=== PATIENT | female | born 1930 | race Caucasian/White ===

== ENCOUNTER 2019-09-10 12:48 | Inpatient (IN) | payer OTHER ==
--- NOTE | 2019-09-10 13:28 | PDOC ---
History of Present Illness - General Chief Complaint: Injury Stated Complaint: FALL Time Seen by Provider: 09/10/19 13:26 History Source: Patient Exam Limitations: No Limitations - History of Present Illness Initial Comments: 09/10/19 13:26 PCP: Chun HPI: 89yo F from [facility] BIBEMS s/p fall at [facility]. Patient unable to provide adequate history, intermittently cooperative with exam and history. She endorses a headache, but does not know where she is, cannot state her full name, does not know the year. Medical history obtained per [place] documentation. All: Morphine Meds: Per chart PMH: Per chart PSH: Per chart 09/10/19 13:52 Spoke with [facility], patient was at an in-house [employer] salon when she fell, hit her head and started bleeding on L parietal region. Unclear LOC. Nursing became concerned when her O2 dropped to 91%, BP 115/56. At baseline patient is A&Ox1 (Responds to her name) and "makes her needs known" but is demented and would not be expected to be able to provide full history. Medical history notable for Parkinson's Dementia, Cellulitis (LLE), PVC, CHF, OA, CKD Stage 2, HLD, hypothyroidism, GERD, RA, HTN crisis. Patient is DNR/DNI, a copy of her MOLST form was sent. Nursing is faxing over her clinical information now after our call. Denies any recent fevers, chills, diarrhea, coughing, or other concerning symptoms. Past History - Travel Traveled outside of the country in the last 30 days: No Close contact w/someone who was outside of country & ill: No - Past Medical History Allergies/Adverse Reactions: Allergies Allergy/AdvReac Type Severity Reaction Status Date / Time morphine Allergy Verified 09/10/19 13:23 Review of Systems - Review of Systems Able to Perform ROS?: No (demented) Is the patient limited Yakut proficient: Yes *Physical Exam - Physical Exam 09/10/19 14:35 Vitals reviewed, AFVSS GEN: Appears stated age, NAD, Opes eyes to her name, intermittently answers questions. A&AOx1. HEENT: Small bleeding abrasion L parietal head, EOMI, PERRL. Sclera anicteric, non-injected. No facial asymmetry. MMM. Trachea midline. CV: RRR, S1/S2, +holosystolic murmur at upper sternal border. No rubs or gallops appreciated. LUNG: CTAB, normal work of breathing. No wheezes, rales, rhonchi. No cough. Poor Sat 93%, placed on NC. GI: Soft, NTND, +BS, no guarding, no rebound. No masses. Neg CVAT b/l. EXTREMITIES: 2+ distal pulses. Trace b/l LE edema with multiple ecchymosis regions, dressings on LE wounds. No obvious deformities of all extremities. SKIN: Warm, dry, non-jaundiced. Legs as above, warm LLE with erythema extending to the knee concerning for cellulitis. Wounds non-purulent. PSYCH: Normal mood and affect. Cooperative and appropriate. NEURO: CN grossly intact. Exam limited by patient participation. ED Treatment Course - LABORATORY CBC & Chemistry Diagram: 09/10/19 14:23 09/10/19 14:23 Medical Decision Making - Medical Decision Making 09/10/19 13:44 89yo F pmh Parkinson's Dementia, Cellulitis (LLE), PVC, CHF, OA, CKD Stage 2, HLD, hypothyroidism, GERD, RA, HTN crisis sent in s/p fall with head trauma. Baseline A&Ox1. - NCHCT, C-Spine, CXR, EKG - CBC, CMP, Cardiac, PT/INR 09/10/19 15:19 - CT without acute ICH. Demonstrated marked ventricular dilation (lateral and third > fourth) likely 2/2 central atrophy. Degenerative disk disease without cervical spine fracture. - CXR limited study. With right base atelectasis vs infiltrate - Leukocytosis to 27.3, now c/w sepsis Admit Med/Surg Pneumonia 09/10/19 15:42 - Spoke with patient's daughter, RN at [facility], clarified patient baseline further c/w presentation, baseline Cr 1.4? - Pain medications result in "passing out" "even 1/4 percocet knocks her out" - Ordered BCx, LActic acid, Influenza Swab - 500cc NS Bolus, gentle hydration given CHF - Plan for Zosyn for PNA, Vancomycin for LLE Cellulitis 09/10/19 15:44 - Cr 1.8, possible DANE on CKD - Negative troponin 09/10/19 16:09 - LLE plain-film ordered 09/10/19 16:50 - Additional call from [place] provider Ale, states that LLE always has a cellulitic appearance, advocates for return to [facility] - Family notes that patient sleeps at midnight and will be anxious if put to bed before that time - Latests BUN/Cr on 09/03/19 was 36.0/1.8 c/w today's results - Given [employer] WORK[employer] Diane's number: [phone] - Daughter: [phone] 09/10/19 17:02 EKbpm, no P waves, junctional rhythm, normal axis, normal intervals with QTc 454, no ischemic changes 09/10/19 17:13 - Admitted to Dr. Mccollum, sign out given by Dr. Fatima - Consult placed for ID 09/10/19 17:15 - Negative lactic acid, mild alkalosis on VBG - Urines pending Discharge - Discharge Information Problems reviewed: Yes Clinical Impression/Diagnosis: Cellulitis and abscess of left leg Pneumonia Qualifiers: Pneumonia type: due to unspecified organism Laterality: right Lung location: lower lobe of lung Qualified Code(s): J18.9 - Pneumonia, unspecified organism Fall Qualifiers: Encounter type: initial encounter Qualified Code(s): W19.XXXA - Unspecified fall, initial encounter Condition: Guarded - Follow up/Referral Referrals: Noe Mccollum MD [Primary Care Provider] - - Patient Discharge Instructions - Post Discharge Activity
[2019-09-10 14:50] LABS: BASO % 0.2 % (0-2.0); HEMATOCRIT 26.8 % (32.4-45.2); HEMOGLOBIN 8.7 GM/dL (10.7-15.3); LYMPH % 4.9 % (8-40); MCH 28.3 pg (25.7-33.7); MCHC 32.7 g/dl (32.0-36.0); MEAN CELL VOLUME 86.6 fl (80-96); MEAN PLT VOLUME 6.5 fl (7.5-11.1); MONO % 5.5 % (3.8-10.2); NEUT % 89.4 % (42.8-82.8); PLATELET COUNT 440 K/MM3 (134-434); RBC 3.09 M/mm3 (3.60-5.2); RDW 17.4 % (11.6-15.6); WHITE BLOOD COUNT 27.3 K/mm3 (4.0-10.0)
[2019-09-10 15:28] LABS: ALBUMIN 2.8 g/dl (3.4-5.0); ALK PHOS 78 U/L (45-117); ANION GAP 9 MMOL/L (8-16); BILIRUBIN,TOTAL 0.4 mg/dL (0.2-1); BLOOD UREA NITROGEN 47.3 mg/dL (7-18); CHLORIDE 100 mmol/L (98-107); CO2 28 mmol/L (21-32); CREATININE 1.8 mg/dL (0.55-1.3); GLUCOSE,RANDOM 88 mg/dL (74-106); POTASSIUM 5.1 mmol/L (3.5-5.1); SGOT/AST 21 U/L (15-37); SGPT/ALT 9 U/L (13-61); SODIUM 137 mmol/L (136-145)
[2019-09-10] MEDS ORDERED: SODIUM CHLORIDE 0.9% 500 ML INFUS.BAG IV ONE (15:44)
[2019-09-10] MEDS ORDERED: VANCOMYCIN 1 GM in D5W (PRE-DOCKED) 1,000 MG/250 ML IVPB ONE (16:17)
[2019-09-10] MEDS ORDERED: PIPERACILLIN/TAZOB 3.375 GM 3.375 GM in DEXTROSE 5%-WATER - 50 ML IVPB ONE (16:17)
--- NOTE | 2019-09-10 16:20 | PDOC ---
Documentation entered by Aleksandr Wright SCRIBE, acting as scribe for Zafar Fatima MD. Zafar Fatima MD: This documentation has been prepared by the Kyle boogie Nirvannie, SCRIBE, under my direction and personally reviewed by me in its entirety. I confirm that the documentation accurately reflects all work, treatment, procedures, and medical decision making performed by me. Attending Attestation - Resident Resident Name: Luis EnriqueDonald - ED Attending Attestation I have performed the following: I have examined & evaluated the patient, The case was reviewed & discussed with the resident, I agree w/resident's findings & plan, Exceptions are as noted - HPI HPI: 09/10/19 14:05 CC: Fall HPI: The patient is a 89 year old female, with a significant past medical history of Parkinson's Dementia, Cellulitis (LLE), PVC, CHF, OA, CKD Stage 2, HLD, hypothyroidism, GERD, RA, HTN, who presents to the emergency department via EMS from [facility] s/p mechanical fall with a headache and laceration to the left head. As per patient, she was getting her hair done at the [facility] [employer] [facility] at which time she fell off of the chair sustaining a laceration to the left side of the head. Patient is a poor historian thus, history is limited. Allergies: Morphine Primary Care Physician: Dr. Mccollum Advanced Directives: DNR/DNI - Physicial Exam PE: 09/10/19 16:24 Vitals: Triage Vital signs reviewed General Appearance: No acute distress, well nourished well developed, Head: Small abrasion to left parietal Eyes: Pupils equal reactive round, extraocular movement intact Cardiac: Holosystolic murmur. Lungs: Clear to auscultation bilateral, good air movement bilaterally, Abdomen: Soft, non distended, normal bowel sounds, non tender to palpation Extremities: Full range of motion to all extremities, no cyanosis, clubbing, or edema Neuro: Moving all extremities Skin: Several areas of ecchymosis dressing on both legs no obvious pus from dressing sites. Left lower extremity cellulitis. - Medical Decision Making 09/10/19 14:05 89 year old female, with a significant past medical history of Parkinson's Dementia, Cellulitis (LLE), PVC, CHF, OA, CKD Stage 2, HLD, hypothyroidism, GERD, RA, HTN, who presents to the emergency department via EMS from [facility] s/p mechanical fall with a headache and laceration to the left head. Plan is: Head/Cspine CT CBC CMP PT/INR Cardiac Profile UA/UC EKG CXR 09/10/19 16:24 Fall with new elevated white blood cell count chest x-ray with evidence of pneumonia left lower extremity cellulitis We will admit to hospital for Zosyn vancomycin and further management.
[2019-09-10] MEDS ORDERED: VANCOMYCIN 1 GRAM (PRE-DOCKED) 1,000 MG/250 ML BAG IVPB ONE (16:37)
[2019-09-10] MEDS ORDERED: PIPERACILLIN/TAZOB 3.375 GM 3.375 GM/50 ML BAG IVPB ONE (16:37)
[2019-09-10 16:41] LABS: VENOUS PC02 41.4 mmHg (38-52); VENOUS PH 7.43 (7.31-7.41)
[2019-09-10 16:48] LABS: ANISOCYTOSIS 1+; MACROCYTOSIS 0; PLATELET ESTIMATE NORMAL
[2019-09-10 17:34] LABS: HYALINE CASTS 1 /lpf (0-8); PH,URINE 5.5 (5.0-8.0); URINE APPEARANCE TURBID; URINE BACTERIA 1209.9 /hpf (NEGATIVE); URINE BILIRUBIN NEGATIVE (NEGATIVE); URINE COLOR YELLOW; URINE GLUCOSE (UA) NEGATIVE (NEGATIVE); URINE KETONE NEGATIVE (NEGATIVE); URINE LEUK ESTERASE 3+ (NEGATIVE); URINE NITRITE POSITIVE (NEGATIVE); URINE PROTEIN 1+ (NEGATIVE); URINE RBC 7 /hpf (0-4); URINE UROBILINOGEN 0.2 mg/dL (0.2-1.0); URINE WBC 454 /hpf (0-5)
--- NOTE | 2019-09-10 19:44 | HP ---
Admitting History and Physical - Admission Chief Complaint: 89 y.o F was BIBEMS from [facility] after she fell in the [email or web address] and remained lethargic. History of Present Illness: Previously falls and gait disorder. Dementia. 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 No: AFIB Pulmonary: No: Asthma, COPD Gastrointestinal: No: Ascites, Cancer, Constipation, Ulcerative Colitis Hepatobiliary: No: Cirrhosis Renal/: Yes: Renal Inusuff. No: Renal Failure ...: No Psych: Yes: Anxiety Musculoskeletal: No: Hemiparesis, Hemiplegia Rheumatology: No: Lupus, Rheumatoid Arthritis, Sarcoidosis Endocrine: No: Cope's Disease, Diabetes Insipidus, Diabetes Mellitus, Hyperthyroidism, Hypothyroidism - Smoking History Smoking history: Never smoked - Alcohol/Substance Use Hx Alcohol Use: No Home Medications - Allergies Allergies/Adverse Reactions: Allergies Allergy/AdvReac Type Severity Reaction Status Date / Time morphine Allergy Verified 09/10/19 13:23 Review of Systems Unable to obtain ROS, reason: DEMENTIA, LETHARGY Physical Examination Vital Signs: Vital Signs Temperature 98.2 F 09/10/19 19:12 Pulse Rate 65 09/10/19 19:12 Respiratory Rate 20 09/10/19 19:12 Blood Pressure 140/52 L 09/10/19 19:12 O2 Sat by Pulse Oximetry (%) 95 09/10/19 18:34 Constitutional: Yes: Calm, Mild Distress Eyes: Yes: Conjunctiva Clear, EOM Intact HENT: Yes: Other (left scalp-2 abrasion after a fall) Neck: Yes: Supple, Trachea Midline. No: Lymphadenopathy Cardiovascular: Yes: Regular Rate and Rhythm, Murmur (CARLOS on AORTA 3/6), S1, S2. No: Bradycardia, Tachycardia, JVD Respiratory: Yes: Regular, CTA Bilaterally Gastrointestinal: Yes: Normal Bowel Sounds, Soft. No: Abdomen, Obese, Ascites ...Rectal Exam: Yes: Deferred Renal/: No: Anuria, Bladder Distention, CVA Tenderness - Left, CVA Tenderness - Right Extremities: No: Amputation, Calf Tenderness, Cyanosis, Deformity, External Rotation, Internal Rotation, Shortened Edema: No Integumentary: Yes: Bruising, Pressure Ulcer (anterior both shins) Wound/Incision: Yes: Other (iodoform gauze) Neurological: Yes: Lethargy (arousable). No: Oriented, Facial Droop Psychiatric: Yes: Alert. No: Oriented, Agitated, Suicidal Ideation Labs: CBC, BMP 09/10/19 14:23 09/10/19 14:23 Laboratory Results - last 24 hr 09/10/19 09/10/19 09/10/19 14:23 14:23 16:00 WBC 27.3 H RBC 3.09 L Hgb 8.7 L Hct 26.8 L MCV 86.6 MCH 28.3 MCHC 32.7 RDW 17.4 H Plt Count 440 H MPV 6.5 L Absolute Neuts (auto) 24.4 H Neutrophils % 89.4 H Neutrophils % (Manual) 85.6 H Band Neutrophils % 4.1 Lymphocytes % 4.9 L Lymphocytes % (Manual) 8.2 Monocytes % 5.5 Monocytes % (Manual) 2 L Eosinophils % 0.0 Eosinophils % (Manual) 0.0 Basophils % 0.2 Basophils % (Manual) 0.0 Myelocytes % (Man) 0 Promyelocytes % (Man) 0 Blast Cells % (Manual) 0 Nucleated RBC % 0 Metamyelocytes 0 Hypochromia 0 Platelet Estimate Normal Polychromasia 1+ Poikilocytosis 0 Anisocytosis 1+ Microcytosis 2+ Macrocytosis 0 VBG pH 7.43 H POC VBG pCO2 41.4 POC VBG pO2 53.0 H VBG HCO3 27.3 VBG O2 Sat (Robert) 83.9 H VBG Base Excess 3.2 H Sodium 137 Potassium 5.1 Chloride 100 Carbon Dioxide 28 Anion Gap 9 BUN 47.3 H Creatinine 1.8 H Est GFR (CKD-EPI)AfAm 28.62 Est GFR (CKD-EPI)NonAf 24.69 Random Glucose 88 Lactic Acid Calcium 9.0 Total Bilirubin 0.4 AST 21 ALT 9 L Alkaline Phosphatase 78 Creatine Kinase 400 H Creatine Kinase Index 1.4 CK-MB (CK-2) 5.6 H Troponin I < 0.02 Total Protein 7.0 Albumin 2.8 L Urine Color Urine Appearance Urine pH Ur Specific [place] Urine Protein Urine Glucose (UA) Urine Ketones Urine Blood Urine Nitrite Urine Bilirubin Urine Urobilinogen Ur Leukocyte Esterase Urine WBC (Auto) Urine RBC (Auto) Urine Casts (Auto) U Epithel Cells (Auto) Urine Bacteria (Auto) 09/10/19 09/10/19 16:00 16:31 WBC RBC Hgb Hct MCV MCH MCHC RDW Plt Count MPV Absolute Neuts (auto) Neutrophils % Neutrophils % (Manual) Band Neutrophils % Lymphocytes % Lymphocytes % (Manual) Monocytes % Monocytes % (Manual) Eosinophils % Eosinophils % (Manual) Basophils % Basophils % (Manual) Myelocytes % (Man) Promyelocytes % (Man) Blast Cells % (Manual) Nucleated RBC % Metamyelocytes Hypochromia Platelet Estimate Polychromasia Poikilocytosis Anisocytosis Microcytosis Macrocytosis VBG pH POC VBG pCO2 POC VBG pO2 VBG HCO3 VBG O2 Sat (Robert) VBG Base Excess Sodium Potassium Chloride Carbon Dioxide Anion Gap BUN Creatinine Est GFR (CKD-EPI)AfAm Est GFR (CKD-EPI)NonAf Random Glucose Lactic Acid 1.4 Calcium Total Bilirubin AST ALT Alkaline Phosphatase Creatine Kinase Creatine Kinase Index CK-MB (CK-2) Troponin I Total Protein Albumin Urine Color Yellow Urine Appearance Turbid Urine pH 5.5 Ur Specific [place] 1.017 Urine Protein 1+ H Urine Glucose (UA) Negative Urine Ketones Negative Urine Blood Trace Urine Nitrite Positive H Urine Bilirubin Negative Urine Urobilinogen 0.2 Ur Leukocyte Esterase 3+ H Urine WBC (Auto) 454 Urine RBC (Auto) 7 Urine Casts (Auto) 1 U Epithel Cells (Auto) 1.0 Urine Bacteria (Auto) 1209.9 Imaging - Results Chest X-ray: Report Reviewed Cat Scan: Report Reviewed Problem List - Problems (1) Leukocytosis (leucocytosis) Assessment/Plan: The diff dx include UTI and sepsis, less likely PNA with RLL atelectasis on the xray cellulitis LE less likely due to minimal erythema, and no discharge. BLD cx/ua cx-P Vanco Code(s): D72.829 - ELEVATED WHITE BLOOD CELL COUNT, UNSPECIFIED
[2019-09-10] MEDS: DEXTROSE 5%-0.45% SALINE 1,000 ML IV SCH (21:59)
[2019-09-10 22:09] LABS: INR 1.03 (0.83-1.09); PROTHROMBIN TIME (PATIENT) 12.1 SEC (9.7-13.0)
[2019-09-11 05:31] VITALS: BMI 26.2
--- NOTE | 2019-09-11 08:36 | PN ---
Progress Note, Physician Chief Complaint: Lethargic, NAD in bed History of Present Illness: Previously falls and gait disorder. Dementia. HLD Parkinson's UTI's The patient is DNR/DNI - Current Medication List Current Medications: Active Medications Aspirin (Ecotrin -) 81 mg PO DAILY ALVA Dextrose/Sodium Chloride (D5-1/2ns -) 1,000 mls @ 75 mls/hr IV ASDIR ALVA Last Admin: 09/10/19 21:59 Dose: 75 mls/hr Documented by: - Objective Vital Signs: Vital Signs Temperature 97.6 F 09/11/19 06:00 Pulse Rate 65 09/11/19 06:00 Respiratory Rate 18 09/11/19 06:00 Blood Pressure 124/49 L 09/11/19 06:00 O2 Sat by Pulse Oximetry (%) 95 09/10/19 18:34 Constitutional: Yes: No Distress, Calm Eyes: Yes: Conjunctiva Clear, EOM Intact HENT: Yes: Atraumatic, Normocephalic Neck: Yes: Supple, Trachea Midline Cardiovascular: Yes: Regular Rate and Rhythm. No: Tachycardia Respiratory: Yes: Regular, CTA Bilaterally Gastrointestinal: Yes: Normal Bowel Sounds, Soft. No: Abdomen, Obese, Ascites, Tenderness, Epigastrium, Tenderness, Rebound, Vomiting ...Rectal Exam: Yes: Deferred Genitourinary: No: Anuria, Bladder Distention, CVA Tenderness - Left, CVA Tenderness - Right Breast(s): Yes: WNL Extremities: No: Calf Tenderness, Cold, Cyanosis Edema: No Peripheral Pulses WNL: No Integumentary: Yes: Laceration, Skin Tear (B/l anterior shins) Neurological: Yes: Confusion, Lethargy Psychiatric: No: Alert, Oriented, Agitated, Suicidal Ideation Labs: CBC, BMP 09/10/19 14:23 09/10/19 14:23 INR, PTT INR 1.03 (0.83-1.09) 09/10/19 21:35 Problem List - Problems (1) Leukocytosis (leucocytosis) Assessment/Plan: The diff dx include UTI and sepsis, less likely PNA with RLL atelectasis on the xray cellulitis LE less likely due to minimal erythema, and no discharge. BLD cx/ua cx-P Vanco Code(s): D72.829 - ELEVATED WHITE BLOOD CELL COUNT, UNSPECIFIED (2) Fall Assessment/Plan: No fracture on x-ray, CT head-neg Problems reviewed: Yes Code(s): W19.XXXA - UNSPECIFIED FALL, INITIAL ENCOUNTER Qualifiers: Encounter type: initial encounter Qualified Code(s): W19.XXXA - Unspecified fall, initial encounter (3) UTI (urinary tract infection) Assessment/Plan: Zosyn/vanco started renal us Problems reviewed: Yes Code(s): N39.0 - URINARY TRACT INFECTION, SITE NOT SPECIFIED (4) Pneumonia Assessment/Plan: Repeat CXR IV Abx as per ID Code(s): J18.9 - PNEUMONIA, UNSPECIFIED ORGANISM Qualifiers: Pneumonia type: due to unspecified organism Laterality: right Lung location: lower lobe of lung Qualified Code(s): J18.9 - Pneumonia, unspecified organism
[2019-09-11 09:01] LABS: BASO % 0.1 % (0-2.0); EOS % 1.6 % (0-4.5); HEMATOCRIT 24.7 % (32.4-45.2); HEMOGLOBIN 8.1 GM/dL (10.7-15.3); LYMPH % 6.3 % (8-40); MCH 28.6 pg (25.7-33.7); MCHC 32.9 g/dl (32.0-36.0); MEAN PLT VOLUME 6.9 fl (7.5-11.1); MONO % 6.4 % (3.8-10.2); NEUT % 85.6 % (42.8-82.8); PLATELET COUNT 383 K/MM3 (134-434); RBC 2.84 M/mm3 (3.60-5.2); RDW 17.3 % (11.6-15.6); WHITE BLOOD COUNT 16.7 K/mm3 (4.0-10.0)
[2019-09-11 09:41] LABS: ALBUMIN 2.5 g/dl (3.4-5.0); BILIRUBIN,TOTAL 0.4 mg/dL (0.2-1); BLOOD UREA NITROGEN 35.5 mg/dL (7-18); CALCIUM 8.9 mg/dL (8.5-10.1); CREATININE 1.4 mg/dL (0.55-1.3); MAGNESIUM 2.6 mg/dL (1.8-2.4); POTASSIUM 4.3 mmol/L (3.5-5.1); TOT PROT 6.4 g/dl (6.4-8.2)
[2019-09-11] MEDS ORDERED: PIPERACILLIN/TAZOB 3.375 GM 3.375 GM in DEXTROSE 5%-WATER - 50 ML IVPB SCH (10:00)
[2019-09-11] MEDS ORDERED: PIPERACILLIN/TAZOBACTAM 3.375 GM VIAL IVPB ONE (10:02)
[2019-09-11] MEDS ORDERED: DEXTROSE 5%-WATER - 50 ML IVPB ONE ×2 (10:02→18:29)
--- NOTE | 2019-09-11 10:18 | EKG ---
Test Reason : Blood Pressure : / mmHG Vent. Rate : 069 BPM Atrial Rate : 069 BPM P-R Int : 000 ms QRS Dur : 080 ms QT Int : 424 ms P-R-T Axes : 000 -15 016 degrees QTc Int : 454 ms POOR DATA QUALITY, INTERPRETATION MAY BE ADVERSELY AFFECTED ACCELERATED JUNCTIONAL RHYTHM ABNORMAL ECG NO PREVIOUS ECGS AVAILABLE Confirmed by Martin Garcia ([id number]) on 09/11/2019 10:17:34 AM Referred By: Confirmed By:Martin Garcia
[2019-09-11] MEDS: DEXTROSE 5%-0.45% SALINE 1,000 ML IV SCH (12:10)
[2019-09-11] MEDS: ASPIRIN COATED 81 MG TABLET.EC PO SCH (12:24)
--- NOTE | 2019-09-11 13:48 | PN ---
Progress Note, Physician History of Present Illness: DM 2 Iron deficiency anemia. GI bleeding. Adenomas colon. Hyperthyroidism HLD Glaucoma COPD Obesity HTN CHFpEF - Current Medication List Current Medications: Active Medications Aspirin (Ecotrin -) 81 mg PO DAILY ALVA Last Admin: 09/11/19 12:24 Dose: 81 mg Documented by: Dextrose/Sodium Chloride (D5-1/2ns -) 1,000 mls @ 75 mls/hr IV ASDIR ALVA Last Admin: 09/11/19 12:10 Dose: 75 mls/hr Documented by: Piperacillin Sod/Tazobactam (Sod 3.375 gm/ Dextrose) 50 mls @ 100 mls/hr IVPB Q8H-IV ALVA; Protocol Piperacillin Sod/Tazobactam (Sod 3.375 gm/ Dextrose) 50 mls @ 100 mls/hr IVPB Q8H-IV ALVA; Protocol Stop: 09/12/19 02:29 Last Admin: 09/11/19 10:28 Dose: 100 mls/hr Documented by: - Objective Vital Signs: Vital Signs Temperature 97.6 F 09/11/19 06:00 Pulse Rate 60 09/11/19 10:19 Respiratory Rate 20 09/11/19 10:19 Blood Pressure 132/58 L 09/11/19 10:19 O2 Sat by Pulse Oximetry (%) 94 L 09/10/19 21:00 Labs: CBC, BMP 09/11/19 07:52 09/11/19 07:52 INR, PTT INR 1.03 (0.83-1.09) 09/10/19 21:35 Problem List - Problems (1) Leukocytosis (leucocytosis) Code(s): D72.829 - ELEVATED WHITE BLOOD CELL COUNT, UNSPECIFIED (2) Fall Code(s): W19.XXXA - UNSPECIFIED FALL, INITIAL ENCOUNTER Qualifiers: Encounter type: initial encounter Qualified Code(s): W19.XXXA - Unspecified fall, initial encounter (3) UTI (urinary tract infection) Code(s): N39.0 - URINARY TRACT INFECTION, SITE NOT SPECIFIED (4) Pneumonia Code(s): J18.9 - PNEUMONIA, UNSPECIFIED ORGANISM Qualifiers: Pneumonia type: due to unspecified organism Laterality: right Lung location: lower lobe of lung Qualified Code(s): J18.9 - Pneumonia, unspecified organism
--- NOTE | 2019-09-11 17:38 | PN ---
Progress Note (short form) - Note Progress Note: ID consult dictated imp/reccd 89 yo female admitted from [place] s/p fall noted to have s/p fall leukocytosis RLL pneumonia UTI tommy/ckd dementia/parkinsons no history of MDRO switch to rocephin f/u cultures check legionella urinary antigen Problem List - Problems (1) Leukocytosis (leucocytosis) Code(s): D72.829 - ELEVATED WHITE BLOOD CELL COUNT, UNSPECIFIED (2) Pneumonia Code(s): J18.9 - PNEUMONIA, UNSPECIFIED ORGANISM Qualifiers: Pneumonia type: due to unspecified organism Laterality: right Lung location: lower lobe of lung Qualified Code(s): J18.9 - Pneumonia, unspecified organism (3) UTI (urinary tract infection) Code(s): N39.0 - URINARY TRACT INFECTION, SITE NOT SPECIFIED (4) Fall Code(s): W19.XXXA - UNSPECIFIED FALL, INITIAL ENCOUNTER Qualifiers: Encounter type: initial encounter Qualified Code(s): W19.XXXA - Unspecified fall, initial encounter (5) Dementia Code(s): F03.90 - UNSPECIFIED DEMENTIA WITHOUT BEHAVIORAL DISTURBANCE (6) Parkinsons Code(s): G20 - PARKINSON'S DISEASE
[2019-09-11] MEDS ORDERED: cefTRIAXone SODIUM 1 GM VIAL ONE (18:29)
[2019-09-11] MEDS: CEFTRIAXONE 1 GM in DEXTROSE 5%-WATER - 50 ML IVPB SCH (18:33)
--- NOTE | 2019-09-11 19:21 | CONS ---
DATE OF CONSULTATION: DATE OF DICTATION: 09/11/2019 INFECTIOUS DISEASE CONSULTATION REQUESTING PHYSICIAN: Noe Mccollum MD. CONSULTING PHYSICIAN: Evangelista Bernabe MD. HISTORY OF PRESENT ILLNESS: This is an 89-year-old woman with a history of Parkinson disease and dementia who was sent to the emergency room on the 10th after she sustained a fall at the [address] at her [facility]. She is a resident of [facility]. She suffers from dementia and Parkinson's. She is alert and oriented to her name, but she is not able to provide a full history or follow very many commands. She was noted in the ER to have some erythema of her legs, the question of a right lower lobe infiltrate on chest x-ray. Her white count was elevated to 27,000, and she was admitted for antibiotic treatment. PAST MEDICAL HISTORY: Notable for dementia, hyperlipidemia, Parkinson disease. She has a history of prior falls and a gait disorder, hypertension, renal insufficiency. She has a history of hyperlipidemia, GERD, aortic stenosis, peripheral vascular disease, osteoarthritis, anxiety, depression, dementia, chronic kidney disease. She resides at the [facility]. ALLERGIES: She is allergic to MORPHINE. MEDICATION: Medications at the fdc include diphenhydramine, carbidopa, levodopa, Bystolic, aspirin, atorvastatin, Lexapro, Lasix, Flovent, iron, clonazepam, vitamin D, vitamin C, levothyroxine, and pantoprazole. SOCIAL HISTORY: She is a [facility] resident. Further history is not available. REVIEW OF SYSTEMS: Not available. PHYSICAL EXAMINATION: General: She is awake and alert. She is speaking. She says follow commands. Vital Signs: She has been afebrile since admission. T-max was 99, current temperature 98.3, pulse is 74, blood pressure 112/79, respiratory rate 20. HEENT: Normocephalic. Eyes are anicteric. Lungs: Diminished breath sounds at the bases. Heart: Regular rate and rhythm. Abdomen: Soft, nontender. Extremities: She has some superficial abrasions on both her legs with minimal erythema. LABORATORY: Notable for admitting white count of 27.3, today is 16.7, hemoglobin 8.1, platelets are 383. BUN and creatinine are 35 and 1.4 with normal LFTs. Albumin is 2.5. Urinalysis is 3+ leukocytes with 454 white cells. Influenza screen is negative. Chest x-ray reveals right lower lobe infiltrate. IMPRESSION: In summary, this is an 89-year-old woman with dementia and Parkinson disease admitted from the [facility] with right lower lobe pneumonia and a UTI. There is really no evidence of cellulitis of her legs. The superficial abrasions appear clean. Would suggest we treat her with ceftriaxone at this time, can cover both for pneumonia as well as for urinary tract infection and follow up her cultures. Would obtain a legionella urinary antigen for completeness, but clinically she appears to be improving. Further recommendations to follow. EVANGELISTA BERNABE M.D. [id number]
[2019-09-12] MEDS: DEXTROSE 5%-0.45% SALINE 1,000 ML IV SCH ×3 (03:17→20:36)
--- NOTE | 2019-09-12 08:13 | PN ---
Progress Note, Physician Chief Complaint: Feels better, more awake, alert. Dr Barker f/u appreciated. Ceftriaxone IV ab ordered. Blood cx and UA cx-neg History of Present Illness: Previously falls and gait disorder. Dementia. UTI's Frequent falls. Anxiety. HLD Parkinson's The patient is DNR/DNI - Current Medication List Current Medications: Active Medications Aspirin (Ecotrin -) 81 mg PO DAILY ALVA Last Admin: 09/11/19 12:24 Dose: 81 mg Documented by: Dextrose/Sodium Chloride (D5-1/2ns -) 1,000 mls @ 75 mls/hr IV ASDIR ALVA Last Admin: 09/12/19 03:17 Dose: 75 mls/hr Documented by: Ceftriaxone Sodium 1 gm/ (Dextrose) 50 mls @ 100 mls/hr IVPB DAILY ALVA; Marija col Last Admin: 09/11/19 18:33 Dose: 100 mls/hr Documented by: - Objective Vital Signs: Vital Signs Temperature 98.4 F 09/12/19 06:00 Pulse Rate 78 09/12/19 06:00 Respiratory Rate 20 09/12/19 06:00 Blood Pressure 154/54 L 09/12/19 06:00 O2 Sat by Pulse Oximetry (%) 93 L 09/11/19 21:00 Constitutional: Yes: No Distress, Calm Eyes: Yes: Conjunctiva Clear, EOM Intact HENT: Yes: Atraumatic, Normocephalic Neck: Yes: Supple, Trachea Midline Cardiovascular: Yes: Regular Rate and Rhythm, S1, S2. No: Bradycardia, Tachycardia Respiratory: Yes: Regular, CTA Bilaterally Gastrointestinal: Yes: Normal Bowel Sounds, Soft ...Rectal Exam: Yes: Deferred Genitourinary: No: Anuria, Bladder Distention Breast(s): Yes: WNL Extremities: No: Amputation, Calf Tenderness, Cold, Cyanosis Edema: No Peripheral Pulses WNL: Yes Integumentary: Yes: Skin Tear (unterior shins treated with Xeroform gauze) Neurological: Yes: Alert. No: Oriented ...Motor Strength: WNL Psychiatric: Yes: Alert. No: Oriented, Agitated, Suicidal Ideation Labs: CBC, BMP 09/11/19 07:52 09/11/19 07:52 INR, PTT INR 1.03 (0.83-1.09) 09/10/19 21:35 Problem List - Problems (1) Leukocytosis (leucocytosis) Assessment/Plan: UTI and sepsis, PNA with RLL atelectasis BLD cx/ua cx-P IV Ceftriaxone Code(s): D72.829 - ELEVATED WHITE BLOOD CELL COUNT, UNSPECIFIED (2) Fall Assessment/Plan: No fracture on x-ray, CT head-neg Code(s): W19.XXXA - UNSPECIFIED FALL, INITIAL ENCOUNTER Qualifiers: Encounter type: initial encounter Qualified Code(s): W19.XXXA - Unspecified fall, initial encounter (3) UTI (urinary tract infection) Assessment/Plan: Urine cx-p Ceftriaxone IV Code(s): N39.0 - URINARY TRACT INFECTION, SITE NOT SPECIFIED (4) Pneumonia Assessment/Plan: Repeated CXR IV Abx as per ID Code(s): J18.9 - PNEUMONIA, UNSPECIFIED ORGANISM Qualifiers: Pneumonia type: due to unspecified organism Laterality: right Lung location: lower lobe of lung Qualified Code(s): J18.9 - Pneumonia, unspecified organism
[2019-09-12 08:58] LABS: BASO % 0.2 % (0-2.0); EOS % 1.9 % (0-4.5); HEMATOCRIT 25.4 % (32.4-45.2); HEMOGLOBIN 8.3 GM/dL (10.7-15.3); LYMPH % 9.4 % (8-40); MCH 28.2 pg (25.7-33.7); MCHC 32.6 g/dl (32.0-36.0); MEAN CELL VOLUME 86.6 fl (80-96); MEAN PLT VOLUME 6.6 fl (7.5-11.1); MONO % 9.3 % (3.8-10.2); NEUT % 79.2 % (42.8-82.8); PLATELET COUNT 414 K/MM3 (134-434); RBC 2.93 M/mm3 (3.60-5.2)
[2019-09-12 09:10] LABS: ALBUMIN 2.5 g/dl (3.4-5.0); BILIRUBIN,TOTAL 0.5 mg/dL (0.2-1); BLOOD UREA NITROGEN 23.8 mg/dL (7-18); CALCIUM 8.4 mg/dL (8.5-10.1); CREATININE 1.1 mg/dL (0.55-1.3); TOT PROT 6.5 g/dl (6.4-8.2)
[2019-09-12] MEDS ORDERED: PIPERACILLIN/TAZOB 3.375 GM 3.375 GM in DEXTROSE 5%-WATER - 50 ML IVPB SCH (10:00)
[2019-09-12] MEDS ORDERED: cefTRIAXone SODIUM 1 GM VIAL ONE (11:15)
[2019-09-12] MEDS ORDERED: DEXTROSE 5%-WATER - 50 ML IVPB ONE (11:16)
[2019-09-12] MEDS: CEFTRIAXONE 1 GM in DEXTROSE 5%-WATER - 50 ML IVPB SCH (11:47)
[2019-09-12] MEDS: ASPIRIN COATED 81 MG TABLET.EC PO SCH (11:47)
--- NOTE | 2019-09-12 13:51 | PN ---
Progress Note (short form) - Note Progress Note: more alert Vital Signs Period Temp Pulse Resp BP Sys/Root Pulse Ox Last 24 Hr 97.4 F-98.9 F 71-78 20-20 112-155/49-70 93 cor-rrr lungs clear abd soft,nt ext no edema CBC, BMP 09/12/19 08:08 09/12/19 08:08 Microbiology 09/11/19 18:45 Urine For Antigen Detection Legionella Antigen - Final 09/11/19 18:45 Urine For Antigen Detection Streptococcus pneumoniae Antigen (M - Final 09/10/19 16:31 Urine - Urine Carty Urine Culture - Preliminary Non Lactose Fermenting Gnb 09/10/19 16:10 Blood - Peripheral Venous Blood Culture - Preliminary NO GROWTH OBTAINED AFTER 24 HOURS, INCUBATION TO CONTINUE FOR 4 DAYS. 09/10/19 16:10 Blood - Peripheral Venous Blood Culture - Preliminary NO GROWTH OBTAINED AFTER 24 HOURS, INCUBATION TO CONTINUE FOR 4 DAYS. s/p fall leukocytosis RLL pneumonia UTI tommy/ckd dementia/parkinsons no history of MDRO continue rocephin f/u cultures Problem List - Problems (1) Leukocytosis (leucocytosis) Code(s): D72.829 - ELEVATED WHITE BLOOD CELL COUNT, UNSPECIFIED (2) Pneumonia Code(s): J18.9 - PNEUMONIA, UNSPECIFIED ORGANISM Qualifiers: Pneumonia type: due to unspecified organism Laterality: right Lung location: lower lobe of lung Qualified Code(s): J18.9 - Pneumonia, unspecified organism (3) UTI (urinary tract infection) Code(s): N39.0 - URINARY TRACT INFECTION, SITE NOT SPECIFIED (4) Fall Code(s): W19.XXXA - UNSPECIFIED FALL, INITIAL ENCOUNTER Qualifiers: Encounter type: initial encounter Qualified Code(s): W19.XXXA - Unspecified fall, initial encounter (5) Dementia Code(s): F03.90 - UNSPECIFIED DEMENTIA WITHOUT BEHAVIORAL DISTURBANCE (6) Parkinsons Code(s): G20 - PARKINSON'S DISEASE
[2019-09-13] MEDS: DEXTROSE 5%-0.45% SALINE 1,000 ML IV SCH (05:36)
[2019-09-13 08:42] LABS: BASO % 0.3 % (0-2.0); EOS % 5.2 % (0-4.5); HEMATOCRIT 25.5 % (32.4-45.2); HEMOGLOBIN 8.5 GM/dL (10.7-15.3); LYMPH % 9.2 % (8-40); MCHC 33.2 g/dl (32.0-36.0); MEAN CELL VOLUME 87.4 fl (80-96); MEAN PLT VOLUME 6.4 fl (7.5-11.1); MONO % 10.9 % (3.8-10.2); NEUT % 74.4 % (42.8-82.8); PLATELET COUNT 420 K/MM3 (134-434); RBC 2.91 M/mm3 (3.60-5.2); RDW 17.2 % (11.6-15.6); WHITE BLOOD COUNT 10.2 K/mm3 (4.0-10.0)
--- NOTE | 2019-09-13 09:08 | PN ---
Progress Note, Physician Chief Complaint: Feels well, NAD, WBC improved 10.2K History of Present Illness: Previously falls and gait disorder. Dementia. UTI's Frequent falls. Anxiety. HLD Parkinson's The patient is DNR/DNI - Current Medication List Current Medications: Active Medications Aspirin (Ecotrin -) 81 mg PO DAILY ALVA Last Admin: 09/12/19 11:47 Dose: 81 mg Documented by: Dextrose/Sodium Chloride (D5-1/2ns -) 1,000 mls @ 75 mls/hr IV ASDIR ALVA Last Admin: 09/13/19 05:36 Dose: 75 mls/hr Documented by: Ceftriaxone Sodium 1 gm/ (Dextrose) 50 mls @ 100 mls/hr IVPB DAILY ALVA; Protocol Last Admin: 09/12/19 11:47 Dose: 100 mls/hr Documented by: - Objective Vital Signs: Vital Signs Temperature 98.5 F 09/13/19 06:00 Pulse Rate 66 09/13/19 06:00 Respiratory Rate 18 09/13/19 06:00 Blood Pressure 157/58 L 09/13/19 06:00 O2 Sat by Pulse Oximetry (%) 95 09/12/19 21:00 Constitutional: Yes: No Distress, Calm Eyes: Yes: Conjunctiva Clear, EOM Intact HENT: Yes: Atraumatic, Normocephalic Neck: Yes: Supple, Trachea Midline Cardiovascular: Yes: Murmur (CARLOS on Aorta), S1, S2 Respiratory: Yes: Regular. No: Cough, Diminished Gastrointestinal: Yes: Normal Bowel Sounds, Soft. No: Abdomen, Obese ...Rectal Exam: Yes: Deferred Breast(s): Yes: WNL Musculoskeletal: Yes: WNL Extremities: No: Amputation, Calf Tenderness, Cold, Cyanosis Edema: No Peripheral Pulses WNL: No Wound/Incision: Yes: Dressing Dry and Intact (Anterior shins) Neurological: Yes: Alert. No: Oriented, Aphasia ...Motor Strength: WNL Psychiatric: Yes: Alert. No: Oriented, Agitated, Suicidal Ideation Labs: CBC, BMP 09/13/19 08:07 09/12/19 08:08 INR, PTT INR 1.03 (0.83-1.09) 09/10/19 21:35 Problem List - Problems (1) Leukocytosis (leucocytosis) Assessment/Plan: UTI and sepsis, PNA with RLL atelectasis BLD cx/ua cx-neg IV Ceftriaxone-will change to PO meds and D/C to SNF Code(s): D72.829 - ELEVATED WHITE BLOOD CELL COUNT, UNSPECIFIED (2) Fall Assessment/Plan: No fracture on x-ray, CT head-neg Code(s): W19.XXXA - UNSPECIFIED FALL, INITIAL ENCOUNTER Qualifiers: Encounter type: initial encounter Qualified Code(s): W19.XXXA - Unspecified fall, initial encounter (3) UTI (urinary tract infection) Assessment/Plan: Urine cx-P aeruginosa, S Levaquin Ceftriaxone IV Code(s): N39.0 - URINARY TRACT INFECTION, SITE NOT SPECIFIED (4) Pneumonia Assessment/Plan: Repeated CXR Complete Levaquin Po Code(s): J18.9 - PNEUMONIA, UNSPECIFIED ORGANISM Qualifiers: Pneumonia type: due to unspecified organism Laterality: right Lung location: lower lobe of lung Qualified Code(s): J18.9 - Pneumonia, unspecified organism
--- NOTE | 2019-09-13 09:12 | DS ---
Physical Examination Vital Signs: Vital Signs Temperature 98.5 F 09/13/19 06:00 Pulse Rate 66 09/13/19 06:00 Respiratory Rate 18 09/13/19 06:00 Blood Pressure 157/58 L 09/13/19 06:00 O2 Sat by Pulse Oximetry (%) 95 09/12/19 21:00 Constitutional: Yes: No Distress, Calm Eyes: Yes: Conjunctiva Clear, EOM Intact HENT: Yes: Atraumatic, Normocephalic Neck: Yes: Supple, Trachea Midline Cardiovascular: Yes: Murmur (CARLOS on aorta), S1, S2 Respiratory: Yes: Regular, CTA Bilaterally Gastrointestinal: Yes: Normal Bowel Sounds, Soft. No: Abdomen, Obese ...Rectal Exam: Yes: Deferred Renal/: No: Anuria Breast(s): Yes: WNL Musculoskeletal: Yes: WNL Edema: No Peripheral Pulses WNL: Yes Wound/Incision: Yes: Dressing Dry and Intact Neurological: Yes: Alert, Oriented ...Motor Strength: WNL Psychiatric: Yes: Alert. No: Oriented, Agitated, Suicidal Ideation Labs: CBC, BMP 09/13/19 08:07 09/12/19 08:08 Discharge Summary Problems reviewed: Yes Reason For Visit: PNEUMONIA, P. aeruginosa UTI Current Active Problems Cellulitis and abscess of left leg (Acute) Dementia (Acute) Fall (Acute) Leukocytosis (leucocytosis) (Acute) Parkinsons (Acute) Pneumonia (Acute) UTI (urinary tract infection) (Acute) Condition: Improved - Instructions Referrals: Noe Mccollum MD [Primary Care Provider] - Disposition: LONGTERM FACILITY - Home Medications Comprehensive Discharge Medication List: Ambulatory Orders Acetaminophen [Tylenol] 650 mg PO TID 09/11/19 Ascorbic Acid [Vitamin C] 500 mg PO DAILY 09/11/19 Aspirin [ASA -] 81 mg PO DAILY 09/11/19 Atorvastatin Ca [Lipitor] 20 mg PO HS 09/11/19 Carbidopa/Levodopa [Carbidopa-Levodopa 25-100 Tab] 25 - 100 mg PO TID 09/11/19 Cholecalciferol (Vitamin D3) [Vitamin D3] 2,000 unit PO DAILY 09/11/19 Diphenhydramine HCl [Allergy] 25 mg PO QID PRN 09/11/19 Docusate Sodium [Colace] 300 mg PO HS 09/11/19 Escitalopram Oxalate [Lexapro -] 10 mg PO DAILY 09/11/19 Ferrous Gluconate [Fergon -] 324 mg PO BID 09/11/19 Fluticasone Propionate [Flovent Diskus] 50 mcg IH DAILY 09/11/19 Furosemide [Lasix] 20 mg PO DAILY 09/11/19 Hydrocortisone Acetate [Hemorrhoidal Hc] 25 mg RC HS 09/11/19 Levothyroxine [Synthroid -] 100 mcg PO DAILY 09/11/19 Nebivolol HCl [Bystolic] 10 mg PO DAILY 09/11/19 Nystatin Cream [Mycostatin Cream -] 100,000 units TP BID 09/11/19 Pantoprazole Sodium 40 mg PO DAILY 09/11/19 Silver Sulfadiazine 1% Top Cr [Silvadene -] 1 applic TP DAILY 09/11/19 Tramadol HCl 25 mg PO DAILY 09/11/19 Triamcinolone 0.1% Cream [Aristocort] 1 applic TP BID 09/11/19 clonazePAM [Klonopin -] 0.25 mg PO QID 09/11/19
[2019-09-13] MEDS ORDERED: cefTRIAXone SODIUM 1 GM VIAL ONE (10:16)
[2019-09-13] MEDS ORDERED: DEXTROSE 5%-WATER - 50 ML IVPB ONE (10:16)
[2019-09-13] MEDS: ASPIRIN COATED 81 MG TABLET.EC PO SCH (10:22)
[2019-09-13] MEDS: CEFTRIAXONE 1 GM in DEXTROSE 5%-WATER - 50 ML IVPB SCH (10:23)
[2019-09-13 12:00] VITALS: BP 154/64; PULSE 68; TEMP 97.9
== END 2019-09-13 14:16 | DRG 871 ==
LOC: JER 12:48 → JERBED 15:40 → J5S 18:51
PROVIDERS: ADMIT Internal Medicine; ATTEND Internal Medicine
DX: A41.9 Sepsis, unspecified organism (principal); J18.9 Pneumonia, unspecified organism; N39.0 Urinary tract infection, site not specified; I13.0 Hypertensive heart and chronic kidney disease with heart failure and stage 1 through stage 4 chronic kidney disease, or unspecified chronic kidney disease; N17.9 Acute kidney failure, unspecified; L03.116 Cellulitis of left lower limb; E87.3 Alkalosis; G20 Parkinson's disease; F02.80 Dementia in other diseases classified elsewhere, unspecified severity, without behavioral disturbance, psychotic disturbance, mood disturbance, and anxiety; D72.829 Elevated white blood cell count, unspecified; F41.9 Anxiety disorder, unspecified; I12.9 Hypertensive chronic kidney disease with stage 1 through stage 4 chronic kidney disease, or unspecified chronic kidney disease; N18.2 Chronic kidney disease, stage 2 (mild); K21.9 Gastro-esophageal reflux disease without esophagitis; E03.9 Hypothyroidism, unspecified; E78.5 Hyperlipidemia, unspecified; I50.9 Heart failure, unspecified
CPT/HCPCS: 36415; 70450-TC; 71045-TC-FY; 72125-TC; 73590-TC-LT-FY; 80053; 81003; 82550; 82553; 82803; 83036; 83605; 83735; 84100; 84484; 85025; 85610; 87040; 87086; 87186; 87804; 87899; 93005; 93010; 97116-GP; 97161-GP; 99285-25

== ENCOUNTER 2021-04-19 10:10 | Emergency (ER) | payer OTHER ==
[2021-04-19 10:23] VITALS: BP 139/98; PULSE 115; TEMP 98.5; BMI 18.0
== END 2021-04-19 14:14 ==
LOC: FER 10:10
DX: Z48.00 Encounter for change or removal of nonsurgical wound dressing (principal)
CPT/HCPCS: 73590-TC-LT-FY; 99281-25